=== PATIENT | female | born 1940 | race Caucasian/White ===

== ENCOUNTER 2016-10-23 15:23 | Emergency (ER) | payer MEDICARE ==
[2016-10-23] MEDS ORDERED: POLYETHYLENE GLYCOL 3350 17 GM POWD.PACK ONE (16:06)
--- NOTE | 2016-10-23 18:12 | ER PHYSICIAN DOCUMENTATION ---
Physician Documentation [facility] Name:Yvrose Garcia Age:75 yrs Sex:Female :1940 Arrival Date:10/23/2016 Time:15:23 Bed3 Private MD:Marianne Varner EDbekahLarry Disposition: 10/23/16 17:12 Discharged to Home/Self Care. Impression: Constipation. - Condition is Good. - Discharge Instructions: CONSTIPATION (Adult). - Medical Reconciliation form form. - Follow up: Marianne Varner MD; When: As needed; Reason: Continuance of care. - Problem is new. - Symptoms have improved. HPI: 10/23 17:07 This 75 yrs old Female presents to ER via Private Vehicle with complaints of sc Constipation. 17:07 The patient presents with constipation, the patient has not had a bowel movement for sc 5days. Onset: The symptoms/episode began/occurred 5 day(s) ago. The symptoms do not radiate. Associated signs and symptoms: none. Modifying factors: The symptoms are alleviated by colace and miralax with minimal relief, taking 3 oxycodone per day since laminectomy, back doing very well. Historical: - Allergies: Tetracycline; SHELLFISH; - Home Meds: 1. Oxycodone HCl Oral 2. musle relaxers 3. losartan oral 4. Estrace Oral 5. Levothroid Oral 6. mutivitiamin - PMHx: HYPOTENSION; HYPOTHYROIDISM; - PSHx: HYSTERECTOMY; BLADDER SUSPENSION; laminectomy ; - Tetanus: unknown. - Ebola Screening: : Patient negative for fever greater than or equal to 101.5 degrees Fahrenheit, and additional compatible Ebola Virus Disease symptoms. Patient denies exposure to infectious person. Patient denies travel to an Ebola-affected area in the 21 days before illness onset. No symptoms or risks identified at this time. . - Immunization history: Flu Vaccine None. - Social history: Smoking status: Patient states was never smoker of tobacco. ROS: 17:08 Constitutional: Negative for fever, chills, and weight loss. sc Eyes: Negative for injury, pain, redness, and discharge. ENT: Negative for injury, pain, and discharge. Neck: Negative for injury, pain, and swelling. Cardiovascular: Negative for chest pain, palpitations, and edema. Respiratory: Negative for shortness of breath, cough, wheezing, and pleuritic chest pain. Skin: Negative for injury, rash, and discoloration. 17:08 Neuro: Negative for headache, weakness, numbness, tingling, and seizure. sc 17:08 Abdomen/GI: Positive for constipation, Negative for abdominal pain, nausea, vomiting, diarrhea, abdominal distension, anorexia, hematemesis, black/tarry stool. Exam: Constitutional: This is a well developed, well nourished patient who is awake, alert, and in no acute distress. Head/Face: Normocephalic, atraumatic. Eyes: Pupils equal round and reactive to light, extra-ocular motions intact. Lids and lashes normal. Conjunctiva and sclera are non-icteric and not injected. Cornea within normal limits. Periorbital areas with no swelling, redness, or edema. ENT: Nares patent. No nasal discharge, no septal abnormalities noted. Tympanic membranes are normal and external auditory canals are clear. Oropharynx with no redness, swelling, or masses, exudates, or evidence of obstruction, uvula midline. Mucous membranes moist. Neck: Trachea midline, no thyromegaly or masses palpated, and no cervical lymphadenopathy. Supple, full range of motion without nuchal rigidity, or vertebral point tenderness. No meningismus. Chest/axilla: Normal chest wall appearance and motion. Nontender with no deformity. No lesions are appreciated. Cardiovascular: Regular rate and rhythm with a normal S1 and S2. No gallops, murmurs, or rubs. Normal PMI, no JVD. No pulse deficits. Respiratory: Lungs have equal breath sounds bilaterally, clear to auscultation and percussion. No rales, rhonchi or wheezes noted. No increased work of breathing, no retractions or nasal flaring. 17:08 Skin: Warm, dry with normal turgor. Normal color with no rashes, no lesions, and no sc evidence of cellulitis. 17:08 Abdomen/GI: Inspection: abdomen appears normal, Bowel sounds: normal, Palpation: abdomen is soft and non-tender, Rectal exam: fecal impaction, that is mild. Vital Signs: 15:33 BP 147 / 65; Pulse 68; Resp 20; Temp 98.9; Pulse Ox 91% on R/A; Weight 86.18 kg; Height cb 5 ft. 3 in. (160.02 cm); Pain 12/19; 15:33 Body Mass Index 33.66 (86.18 kg, 160.02 cm) cb MDM: 16:33 Patient medically screened. [place] 17:09 Differential diagnosis: non-specific abd pain, constipation. Data reviewed: vital sc signs, nurses notes, old medical records, lab test result(s), and as a result, I will continue to observe the patient. Counseling: I had a detailed discussion with the patient and/or guardian regarding: the historical points, exam findings, and any diagnostic results supporting the discharge/admit diagnosis, the need for outpatient follow up, to return to the emergency department if symptoms worsen or persist or if there are any questions or concerns that arise at home. Medication response: The patient's symptoms have improved. Response to treatment: the patient's symptoms have markedly improved after treatment. 10/23 16:53 Order name: Enema: Soap Suds; Complete Time: 17:11 cb Dispensed Medications: No medications were administered Point of Care Testing: Urine Dip: 15:43 pH: 7.0; ; Specific [place]: 1.015; Ketones: Negative; Glucose: Negative; Protein: cb Negative; Leukocytes: Negative; Nitrite: Negative ; Blood: Negative; Bilirubin: Negative ; Urobilinogen: Normal Signatures: Yoko Velazquez RN RN cb Chew, Scott, MD MD [place]
--- NOTE | 2016-10-23 18:12 | ER NURSING DOCUMENTATION ---
Nurse's Notes [facility] Name:Yvrose Garcia Age:75 yrs Sex:Female :1940 Arrival Date:10/23/2016 Time:15:23 Bed3 Private MD:Marianne Varner Diagnosis:Constipation Presentation: 10/23 15:31 Presenting complaint: Patient states: constipation since 10/17/2016, surgical date. cb Transition of care: Home. 15:31 Method Of Arrival: Private Vehicle cb 15:31 Acuity: JANET 4 cb 15:50 Notified ED Physician of patient's arrival and CC Dr. Hawk notified. cb Triage Assessment: 15:31 General: Appears uncomfortable, well groomed, Behavior is cooperative. cb 15:31 Pain: Complains of pain in right lower quadrant and left lower quadrant Pain currently cb is 5 out of 10 on a pain scale. EENT: No deficits noted. Neuro: Level of Consciousness is awake, alert, Oriented to person, place, time, event. Cardiovascular: Pulses are 2+ in right radial artery. Respiratory: Airway is patent Trachea midline Respiratory effort is even, unlabored, Respiratory pattern is regular, symmetrical. Respiratory: Breath sounds are clear bilaterally. GI: Abdomen is obese, Bowel sounds hypoactive in right upper quadrant, left upper quadrant, right lower quadrant and left lower quadrant Abd is soft X 4 quads Abdomen is tender to palpation in right lower quadrant and left lower quadrant. : No deficits noted. Derm: No deficits noted. Musculoskeletal: Reports patient is post laminectomy on 10/17, patient only lies on side to avoid pain, extreme pain with sitting. Historical: - Allergies: Tetracycline; SHELLFISH; - Home Meds: 1. Oxycodone HCl Oral 2. musle relaxers 3. losartan oral 4. Estrace Oral 5. Levothroid Oral 6. mutivitiamin - PMHx: HYPOTENSION; HYPOTHYROIDISM; - PSHx: HYSTERECTOMY; BLADDER SUSPENSION; laminectomy ; - Tetanus: unknown. - Ebola Screening: : Patient negative for fever greater than or equal to 101.5 degrees Fahrenheit, and additional compatible Ebola Virus Disease symptoms. Patient denies exposure to infectious person. Patient denies travel to an Ebola-affected area in the 21 days before illness onset. No symptoms or risks identified at this time. . - Immunization history: Flu Vaccine None. - Social history: Smoking status: Patient states was never smoker of tobacco. Screenin:14 Infectious Disease Risk None. Abuse screen: Denies threats or abuse. Denies injuries cb from another. Nutritional screening: No deficits noted. Vital Signs: 15:33 BP 147 / 65; Pulse 68; Resp 20; Temp 98.9; Pulse Ox 91% on R/A; Weight 86.18 kg; Height cb 5 ft. 3 in. (160.02 cm); Pain 5/10; 15:33 Body Mass Index 33.66 (86.18 kg, 160.02 cm) cb ED Course: 15:25 Patient arrived in ED. hw2 15:26 Marianne Varner MD is Private Physician. hw2 15:31 Yoko Velazquez, RN is Primary Nurse. cb 15:32 Triage completed. cb 15:55 Larry Hawk MD is Attending Physician. sc 17:10 Marianne Varner MD is Referral Physician. sc 17:14 Soap suds enema given. Patient tolerated well with good results . cb 17:14 Valuables Remains with patient Patient has correct armband on for positive cb identification. Placed in gown. Bed in low position. Call light in reach. Side rails up X 1. Adult w/ patient. Administered Medications: No medications were administered Point of Care Testing: Urine Dip: 15:43 pH: 7.0; ; Specific [place]: 1.015; Ketones: Negative; Glucose: Negative; Protein: cb Negative; Leukocytes: Negative; Nitrite: Negative ; Blood: Negative; Bilirubin: Negative ; Urobilinogen: Normal Outcome: 17:12 Discharge ordered by . or 18:00 Discharged to home ambulatory, with family. cb 18:00 Condition: stable 18:00 Discharge Assessment: Patient awake, alert and oriented x 3. No cognitive and/or functional deficits noted. Patient verbalized understanding of disposition instructions. 18:00 Discharge instructions given to patient, Instructed on discharge instructions, follow up and referral plans. Demonstrated understanding of instructions. 18:11 Patient left the ED. cb 10/24 11:09 Discharge F/U Call: Spoke with: patient. Overall Care on a scale of 1-[address] being the best care, you rate our care as: Other comments: pt was able to have a normal BM this AM and is feeling good. Signatures: Yoko Velazquez, RN RN Edie Avila RN RN st Chew, Scott, MD MD [place], Heidi 2
== END 2016-10-23 18:12 | disposition home or self-care (01) ==
LOC: ER 15:23
DX: K59.00 Constipation, unspecified (principal); Z79.899 Other long term (current) drug therapy
CPT/HCPCS: 99283; 99284